=== PATIENT | female | born 1970 | race Caucasian/White ===

== ENCOUNTER → 2017-04-25 | Day surgery (SDC) | payer OTHER ==
[~2017-04-25] MED LIST: ATOR10TA PO; BUSP15TA PO; HYDROmorphone 2 MG/ML VIAL IV PRN; IV RINGERS,LACTATED 1000ML 1,000 ML IV SCH; LIDOCAINE 1% PF 2 ML VIAL. ID PRN; LIDOCAINE 2% PF Vial for OR 5 ML VIAL. ONE; LORC10TA PO; MORPHINE SULFATE 2 MG/ML DISP.SYRIN. IV PRN; ONDANSETRON PF 4 MG/2 ML VIAL. IV PRN; PARO20TA99 PO; PRAM0.125 PO; PROCHLORPERAZINE 10 MG/2 ML VIAL. IV PRN; PROPOFOL 40 ML IV ONE; fentaNYL PF VIAL 100 MCG/2 ML VIAL IV PRN
[2017-04-25 07:53] VITALS: BP 112/69
== END | disposition home or self-care (01) ==
LOC: ENDOS 05:55
PROVIDERS: ATTEND Internal Medicine Gastroenterology
DX: K57.30 Diverticulosis of large intestine without perforation or abscess without bleeding (principal); K64.0 First degree hemorrhoids; F32.9 Major depressive disorder, single episode, unspecified; Z72.0 Tobacco use; Z90.710 Acquired absence of both cervix and uterus
CPT/HCPCS: 45378; J2704; J2001